=== PATIENT | male | born 1990 | race Caucasian/White ===

== ENCOUNTER 2018-06-24 01:30 | Emergency (ER) | payer OTHER ==
[~2018-06-24] VITALS: Ht 175.3 cm; Wt 72.7 kg
[2018-06-24 04:01] LABS: BASOPHILS % (AUTO) 0.7 % (0.0-2.0); EOSINOPHILS % (AUTO) 1.7 % (1.0-6.0); HEMATOCRIT 45.2 % (41-53); HEMOGLOBIN 15.8 g/dL (13.5-17.5); LYMPHOCYTES # (AUTO) 1.3 K/uL (1.0-4.8); LYMPHOCYTES % (AUTO) 16.8 % (22.0-44.0); MEAN CORPUSCULAR HEMOGLOBIN 31.9 pg (26.0-34.0); MEAN CORPUSCULAR HGB CONC 34.9 G/dL (31.0-37.0); MEAN CORPUSCULAR VOLUME 92 fL (80-100); MONOCYTES # (AUTO) 0.5 K/uL (0.1-1.0); MONOCYTES % (AUTO) 6.4 % (2.0-9.0); NEUTROPHILS # (AUTO) 5.6 K/uL (1.8-7.7); NEUTROPHILS % (AUTO) 74.4 % (40.0-70.0); PLATELET COUNT (AUTO) 259 K/uL (150-450); RED BLOOD CELL COUNT(AUTO) 4.94 MIL/uL (4.50-5.90); RED CELL DISTRIBUTION WIDTH 12.5 % (11.5-14.5)
[2018-06-24 04:06] LABS: ANION GAP 5 mmol/L (8-16); CARBON DIOXIDE 28 mmol/L (22-29); CHLORIDE 106 mmol/L (98-107); CREATININE 1.04 mg/dL (0.60-1.30); GLOMERULAR FILTR. RATE CALC > 60 mL/min (>60); GLUCOSE,RANDOM 102 mg/dL (70-110); POTASSIUM 4.4 mmol/L (3.5-5.1); SODIUM SERUM 139 mmol/L (136-145); UREA NITROGEN, BLOOD 12 mg/dL (7-18)
[2018-06-24 04:12] LABS: ALANINE AMINOTRANSFERASE 84 U/L (12-78); ALBUMIN 3.8 g/dL (3.4-5.0); ALKALINE PHOSPHATASE 93 U/L (46-116); ASPARTATE AMINOTRANSFERASE 55 U/L (15-37); BILIRUBIN,TOTAL 0.5 mg/dL (0.1-1.0); TOTAL PROTEIN, SERUM 8.1 g/dL (6.4-8.2)
[2018-06-24 04:34] LABS: AMPHET/METH SCREEN,URINE NEGATIVE (NEGATIVE); BARBITURATE SCREEN, URINE NEGATIVE (NEGATIVE); BENZODIAZEPINES SCREEN,URINE NEGATIVE (NEGATIVE); CANNABINOID SCREEN,URINE NEGATIVE (NEGATIVE); COCAINE SCREEN,URINE NEGATIVE (NEGATIVE); METHADONE SCREEN, URINE NEGATIVE (NEGATIVE); OPIATE SCREEN,URINE NEGATIVE (NEGATIVE)
[2018-06-24 04:38] LABS: PHENCYCLIDINE SCREEN,URINE NEGATIVE (NEGATIVE)
[2018-06-24 04:39] LABS: CALCIUM, TOTAL 8.5 mg/dL (8.8-10.5)
[2018-06-24 05:07] VITALS: BP 119/68
== END 2018-06-24 05:08 | disposition home or self-care (01) ==
LOC: EMS 01:33
DX: F10.129 Alcohol abuse with intoxication, unspecified (principal); Y90.7 Blood alcohol level of 200-239 mg/100 ml
CPT/HCPCS: 36415; 80053; 80307; 85025; 99283; G0480

== ENCOUNTER 2021-07-22 18:21 | Inpatient (IN) | payer MEDICAID, OTHER ==
[~2021-07-22] VITALS: Ht 175.3 cm; Wt 85.1 kg
[2021-07-22 20:02] LABS: BASOPHILS % (AUTO) 0.6 % (0.0-2.0); EOSINOPHILS % (AUTO) 0.5 % (1.0-6.0); HEMATOCRIT 45.4 % (41-53); HEMOGLOBIN 15.9 g/dL (13.5-17.5); LYMPHOCYTES # (AUTO) 1.9 K/uL (1.0-4.8); LYMPHOCYTES % (AUTO) 22.5 % (22.0-44.0); MEAN CORPUSCULAR HEMOGLOBIN 31.6 pg (26.0-34.0); MEAN CORPUSCULAR VOLUME 90 fL (80-100); MONOCYTES # (AUTO) 0.8 K/uL (0.1-1.0); NEUTROPHILS # (AUTO) 5.6 K/uL (1.8-7.7); NEUTROPHILS % (AUTO) 66.4 % (40.0-70.0); PLATELET COUNT (AUTO) 271 K/uL (150-450); RED BLOOD CELL COUNT(AUTO) 5.03 MIL/uL (4.50-5.90); RED CELL DISTRIBUTION WIDTH 12.3 % (11.5-14.5)
[2021-07-22 20:14] LABS: ANION GAP 11 mmol/L (8-16); CALCIUM, TOTAL 9.2 mg/dL (8.8-10.5); CARBON DIOXIDE 25 mmol/L (22-29); CHLORIDE 102 mmol/L (98-107); CREATININE 1.28 mg/dL (0.60-1.30); GLOMERULAR FILTR. RATE CALC > 60 mL/min (>60); GLUCOSE,RANDOM 115 mg/dL (70-110); POTASSIUM 3.5 mmol/L (3.5-5.1); SODIUM SERUM 138 mmol/L (136-145); UREA NITROGEN, BLOOD 21 mg/dL (7-18)
[2021-07-22 20:22] LABS: ALANINE AMINOTRANSFERASE 24 U/L (12-78); ALBUMIN 3.9 g/dL (3.4-5.0); ALKALINE PHOSPHATASE 87 U/L (46-116); ASPARTATE AMINOTRANSFERASE 15 U/L (15-37); BILIRUBIN,TOTAL 0.5 mg/dL (0.1-1.0); TOTAL PROTEIN, SERUM 7.8 g/dL (6.4-8.2)
[2021-07-22 21:14] LABS: COVID AG,FIA SOURCE NASOPHARYNGEAL
[2021-07-22] MEDS ORDERED: HALOPERIDOL 5 MG TABLET PO PRN (22:45)
[2021-07-22] MEDS: LORazepam 2 MG TABLET PO PRN (22:48)
[2021-07-22] MEDS: ZOLPIDEM TARTRATE 10 MG TABLET PO PRN (22:48)
[2021-07-22 23:41] LABS: APPEARANCE,URINE CLEAR (CLEAR); BILIRUBIN,URINE NEGATIVE (NEGATIVE); GLUCOSE, URINE (UA) NEGATIVE (NEGATIVE); KETONES,URINE TRACE mg/dL (NEGATIVE); LEUKOCYTE ESTERASE ,URINE NEGATIVE (NEGATIVE); NITRATE,URINE NEGATIVE (NEGATIVE); OCCULT BLOOD,URINE NEGATIVE (NEGATIVE); PH,URINE 5.5 (5.0-8.0); PROTEIN,URINE TRACE mg/dL (NEGATIVE); UROBILINOGEN,URINE <=1.0 mg/dL (<=1.0)
[2021-07-22 23:48] LABS: AMPHET/METH SCREEN,URINE NEGATIVE (NEGATIVE); BARBITURATE SCREEN, URINE NEGATIVE (NEGATIVE); BENZODIAZEPINES SCREEN,URINE NEGATIVE (NEGATIVE); CANNABINOID SCREEN,URINE NEGATIVE (NEGATIVE); COCAINE SCREEN,URINE NEGATIVE (NEGATIVE); METHADONE SCREEN, URINE NEGATIVE (NEGATIVE); OPIATE SCREEN,URINE NEGATIVE (NEGATIVE)
[2021-07-22 23:50] LABS: PHENCYCLIDINE SCREEN,URINE NEGATIVE (NEGATIVE)
[2021-07-23 01:50] VITALS: BP 121/81
[2021-07-23] MEDS ORDERED: INFLUENZA VIRUS VACCINE QVS 2021-22 (6MO+)/PF 60 MCG/0.5 ML SYRINGE IM. ONE (02:45)
[2021-07-23] MEDS ORDERED: ACETAMINOPHEN 325 MG TABLET PO PRN (06:30)
[2021-07-23] MEDS ORDERED: GuaiFENesin/D-METHORPHAN [SUGAR-FREE] 200-20MG/10 ML SYRUP UDCUP PO PRN (06:30)
[2021-07-23] MEDS ORDERED: PETROLATUM,WHITE 28 GM JELLY TP PRN (06:30)
[2021-07-23] MEDS ORDERED: MAGNESIUM HYDROXIDE SUSPENSION 30 ML UDCUP PO PRN (06:30)
[2021-07-23] MEDS ORDERED: NICOTINE 14 MG/24 HOUR PATCH TD PRN (06:30)
[2021-07-23] MEDS ORDERED: DOCUSATE SODIUM 100 MG CAPSULE PO PRN (06:30)
[2021-07-23] MEDS ORDERED: IBUPROFEN 400 MG TABLET PO PRN (06:30)
[2021-07-23] MEDS ORDERED: ONDANSETRON HCL 4 MG TABLET PO PRN (06:30)
[2021-07-23] MEDS ORDERED: ALBUTEROL SULFATE HFA 90 MCG/PUFF 8 GM INHALER IH PRN (06:30)
[2021-07-23] MEDS ORDERED: MAG HYDROX/AL HYDROX/SIMETH ES 30 ML SUSPENSION UDCUP PO PRN (06:30)
[2021-07-23] MEDS ORDERED: LOPERAMIDE HCL 2 MG CAPSULE PO PRN (06:30)
[2021-07-23] MEDS ORDERED: CloNIDine HCL 0.1 MG TABLET PO PRN (06:30)
[2021-07-23 08:06] VITALS: BP 126/74
[2021-07-23 08:25] LABS: FREE T4 (FREE THYROXINE) 1.31 ng/dL (0.76-1.46); THYROID STIMULATING HORMONE 1.08 uIU/mL (0.36-3.74)
[2021-07-23 16:15] VITALS: BP 104/62
[2021-07-23] MEDS: LORazepam 2 MG TABLET PO PRN (19:20)
[2021-07-23] MEDS: ZOLPIDEM TARTRATE 10 MG TABLET PO PRN (20:26)
[2021-07-23] MEDS: QUEtiapine FUMARATE 200 MG TABLET PO SCH (20:26)
[2021-07-24 04:51] VITALS: BP 120/79
[2021-07-24 08:09] LABS: CHOL/HDL RATIO 6.3 (4.2-7.3)
[2021-07-24 08:53] VITALS: BP 130/77
[2021-07-24 16:08] VITALS: BP 120/81
[2021-07-24] MEDS: ZOLPIDEM TARTRATE 10 MG TABLET PO PRN (20:32)
[2021-07-24] MEDS: LORazepam 2 MG TABLET PO PRN (20:32)
[2021-07-24] MEDS: QUEtiapine FUMARATE 200 MG TABLET PO SCH (20:32)
[2021-07-25 04:38] VITALS: BP 130/70
[2021-07-25 08:31] VITALS: BP 130/76
[2021-07-25 16:09] VITALS: BP 135/92
[2021-07-25] MEDS: QUEtiapine FUMARATE 200 MG TABLET PO SCH (20:10)
[2021-07-25] MEDS: ZOLPIDEM TARTRATE 10 MG TABLET PO PRN (20:20)
[2021-07-26 02:36] VITALS: BP 111/66
[2021-07-26 08:06] VITALS: BP 126/84
[2021-07-26] MEDS ORDERED: QUET200T30 PO (09:46)
== END 2021-07-26 13:05 | disposition home or self-care (01) | DRG 750 ==
LOC: EMS 18:21 → B3A 07-23 00:01 → B2S 07-23 21:00
PROVIDERS: ADMIT Psychiatry & Neurology Psychiatry; ATTEND Psychiatry & Neurology Psychiatry
DX: F25.1 Schizoaffective disorder, depressive type (principal); G93.40 Encephalopathy, unspecified; R45.851 Suicidal ideations; F31.9 Bipolar disorder, unspecified; Z28.9 Immunization not carried out for unspecified reason; E78.5 Hyperlipidemia, unspecified; R73.9 Hyperglycemia, unspecified; G47.00 Insomnia, unspecified; Z20.822 Contact with and (suspected) exposure to COVID-19
CPT/HCPCS: 80053; 80061; 81003; 84439; 84443; 85025; 90686; 99285; G0480